=== PATIENT | female | born 1950 | race Caucasian/White ===

== ENCOUNTER 2021-09-29 14:36 | Emergency (ER) | payer MEDICARE, SELFPAY ==
[2021-09-29 14:55] VITALS: BP 102/50; PULSE 93; RESP 16; TEMP 36.8; O2SAT 93
--- NOTE | 2021-09-29 16:49 | W.ED.COVID ---
HPI - COVID General: Chief Complaint: COVID symptoms Stated Complaint: Covid + Time Seen by Provider: 09/29/21 16:31 Triage information: Has fever, cough or shortness of breath. No known COVID + exposure last 14 days History of Present Illness: 71-year-old female presenting today with concerns of recent diagnosis of COVID. Patient's was recently COVID-positive. She was diagnosed with COVID today. She has minimal symptoms. She denies chest pain, shortness of breath, fevers, chills, nausea, vomiting, body aches. She does note that she feels tired today. She otherwise has no other concerns. COVID Results: No Data to Display Review of Systems General: Reports: 10 or more systems reviewed and unremarkable except in HPI and below Physical Exam Const: COMMON NORMALS: no acute distress, patient oriented x3 and alert GENERAL APPEARANCE: cooperative ORIENTATION/CONSCIOUSNESS: Yes awake, Yes oriented to person, Yes oriented to place and Yes oriented to time HENMT: COMMON NORMALS: normocephalic, atraumatic, external ears normal, Normal external nose present and moist oral mucous membranes HEAD & SCALP: normal to inspection, normocephalic and atraumatic NOSE: Normal external nose present GENERAL EAR: hearing grossly impaired EXTERNAL EAR: Yes external ears normal Eye: COMMON NORMALS: Equal, round and reactive pupils present, EOMs intact bilaterally, conjunctivae normal and no scleral icterus GENERAL EYE: appearance normal, both eyes and all related structures EYELID: eyelids normal CONJUNCTIVA: Yes conjunctivae normal SCLERA: sclerae normal PUPIL: Yes Equal, round and reactive pupils present Neck/C-Spine: COMMON NORMALS: full ROM, supple and no JVD GENERAL: Yes normal visual inspection Lymph: LYMPHATIC: no lymphadenopathy noted and no lymphedema noted Chest: COMMONS NORMALS: normal inspection of the chest Resp: COMMON NORMALS: normal respiratory effort, No retractions and No use of accessory muscles Cardio: COMMON NORMALS: no JVD, regular rate and regular rhythm RATE: regular rate RHYTHM: regular rhythm GI: COMMON NORMALS: Normal to inspection, nondistended, normoactive bowel sounds present : COMMON NORMALS: Yes no CVA tenderness BLADDER/KIDNEY EXAM: Yes no CVA tenderness Back/Pelvis: COMMON NORMALS: no CVA tenderness and thoracic and lumbar spine normal to inspection Extremity: COMMON NORMALS: normal to inspection, full ROM and capillary refill normal GENERAL: Yes normal exam except as noted Neuro: COMMON NORMALS: patient oriented x3, CN's II-XII intact bilaterally, moves all extremities, no focal motor deficits, no sensory deficits noted and gait normal SENSORIUM/ORIENTATION: Yes alert, Yes oriented to person, Yes oriented to place and Yes oriented to time Psych: COMMON NORMALS: mental status grossly normal, Normal thought process present, cooperative and normal affect THOUGHT PROCESS: Normal thought process present Skin: COMMON NORMALS: no rashes or lesions noted and no wounds GENERAL SKIN EXAM: no rashes or lesions noted Course Vital Signs: Vital signs: Vital Signs Temperature 98.3 F 09/29/21 14:55 Pulse Rate 93 09/29/21 14:55 Respiratory Rate 16 09/29/21 14:55 Blood Pressure 102/50 09/29/21 14:55 Pulse Oximetry 93 09/29/21 14:55 Oxygen Delivery Me thod 09/29/21 14:55 MDM - COVID Medical Decision Making Patient is a 71-year-old female presenting today with a diagnosis of COVID. Patient's vital signs are within normal limits. Physical exam is unremarkable. Discussed risks and benefits of monoclonal antibodies. We will not place patient on monoclonal's at this time. As do not feel a significant indication. Patient was given return precautions. Recommended routine outpatient follow-up. Lab Data No Data to Display Discharge Plan Discharge Patient Disposition: Home Clinical Impression: COVID Condition: Stable Discharge Orders: Discharge ED (Routine); Ordered 09/29/21 Ordered By: Navarro Nino Discharge Diet: Advance as tolerated Discharge Activity: Resume usual activity Patient Instructions: COVID-19 (Coronavirus Disease 2019) (ED) Coding Level of Care Code ED Utility Bill Complaints Investigator for Omari Flores
[2021-09-29 17:03] VITALS: O2SAT 94
[2021-09-29 17:08] VITALS: BP 110/62; PULSE 80; RESP 18; TEMP 36.7; O2SAT 94
== END 2021-09-29 17:10 | disposition home or self-care (01) ==
PROVIDERS: Emergency Provider Emergency Medicine
DX: U07.1 COVID-19 (principal)
CPT/HCPCS: 99283